=== PATIENT | male | born 1995 | race Hispanic/Latino ===

== ENCOUNTER 2018-12-12 12:38 | Emergency (ER) | payer OTHER ==
[2018-12-12] MEDS ORDERED: LIDOCAINE 1% MPF 5 ML VIAL ONE (12:58)
--- NOTE | 2018-12-12 13:09 | EDPHYS ---
Physician Documentation [facility] Name: Henry Perales Age: 23 yrs Sex: Male : 1995 Arrival Date: 12/12/2018 Time: 12:40 Bed 8 Private MD: ED Physician Devonte Ervin HPI: 12/12 12:47 This 23 yrs old Male presents to ER via Ambulatory with complaints of Laceration To kb Scalp/Face. 12:47 The patient has a laceration related to: playing sports, basketball, occurred outdoors, kb and there are no complicating factors. The injury was accidental. The laceration(s) is(are) located on the left supraorbital ridge. Onset: The symptoms/episode began/occurred just prior to arrival. Associated signs and symptoms: The patient has no apparent associated signs or symptoms. The patient has not experienced similar symptoms in the past. The patient has not recently seen a physician. Pt reports he was dunking the ball and hit head on basketball hoop causing laceration just above left eye. Denies visual changes. . Historical: - Allergies: 12:41 No Known Allergies; la1 - PMHx: 12:41 None; la1 - Immunization history:: Adult Immunizations up to date. - Social history:: Smoking status: Patient/guardian denies using tobacco. - Ebola Screening: : No symptoms or risks identified at this time. ROS: 12:44 Constitutional: Negative for fever, chills, and weight loss, Cardiovascular: Negative kb for chest pain, palpitations, and edema, Respiratory: Negative for shortness of breath, cough, wheezing, and pleuritic chest pain, Abdomen/GI: Negative for abdominal pain, nausea, vomiting, diarrhea, and constipation, MS/Extremity: Negative for injury and deformity, Neuro: Negative for headache, weakness, numbness, tingling, and seizure. 12:44 Skin: Positive for laceration(s), of the left supraorbital ridge. Exam: 12:44 Constitutional: This is a well developed, well nourished patient who is awake, alert, kb and in no acute distress. Head/Face: Normocephalic, atraumatic. Chest/axilla: Normal chest wall appearance and motion. Nontender with no deformity. No lesions are appreciated. Cardiovascular: Regular rate and rhythm with a normal S1 and S2. No gallops, murmurs, or rubs. Normal PMI, no JVD. No pulse deficits. Respiratory: Lungs have equal breath sounds bilaterally, clear to auscultation and percussion. No rales, rhonchi or wheezes noted. No increased work of breathing, no retractions or nasal flaring. Abdomen/GI: Soft, non-tender, with normal bowel sounds. No distension or tympany. No guarding or rebound. No evidence of tenderness throughout. MS/ Extremity: Pulses equal, no cyanosis. Neurovascular intact. Full, normal range of motion. Neuro: Awake and alert, GCS 15, oriented to person, place, time, and situation. Cranial nerves II-XII grossly intact. Motor strength 5/5 in all extremities. Sensory grossly intact. Cerebellar exam normal. Normal gait. 12:44 Skin: injury, laceration(s), the wound is approximately 3 cm(s), of the left supraorbital ridge, that can be described as clean, no foreign body, linear, without bleeding. Vital Signs: 12:41 BP 128 / 80; Pulse 95; Resp 16; Pulse Ox 98% on R/A; Weight 118.39 kg; Height 6 ft. 2 la1 in. (187.96 cm); 12:48 Temp 97.4(TE); Pain 5/10; la1 12:41 Body Mass Index 33.51 (118.39 kg, 187.96 cm) la1 Laceration: 13:07 Wound Repair of 3cm ( 1.2in ) subcutaneous laceration to left supraorbital ridge. kb Linear shaped.. Distal neuro/vascular/tendon intact. Anesthesia: Wound infiltrated with 2 mls of 1% lidocaine. Wound prep: Moderate cleansing with betadine by me, Wound irrigation with saline by ia. Skin closed with 6 5-0 fast absorbing gut using interrupted sutures and sterile technique. Patient tolerated well. MDM: 12:42 Patient medically screened. kb 12:47 Data reviewed: vital signs, nurses notes. Data interpreted: Pulse oximetry: on room air kb is 98 %. Interpretation: normal. 13:07 Counseling: I had a detailed discussion with the patient and/or guardian regarding: the kb historical points, exam findings, and any diagnostic results supporting the discharge/admit diagnosis, the need for outpatient follow up, a family practitioner, to return to the emergency department if symptoms worsen or persist or if there are any questions or concerns that arise at home. 12/12 12:42 Order name: Dressing - Wound; Complete Time: 13:13 kb 12/12 12:42 Order name: Gloves, Sterile; Complete Time: 12:48 kb 12/12 12:42 Order name: Setup Suture Tray; Complete Time: 12:48 kb 12/12 12:42 Order name: Vicryl, Sutures; Complete Time: 12:48 kb Administered Medications: 12:48 Drug: Lidocaine (1 %) 1 vials Volume: 5 ml; Route: Infiltration; la1 Disposition: 22:09 Co-signature as Attending Physician, Devonte rEvin MD Available for consultation at ps1 all times . Disposition: 12/12/18 13:08 Discharged to Home. Impression: Laceration without foreign body of left eyelid and periocular area. - Condition is Stable. - Discharge Instructions: Facial Laceration, [id number]. - Medication Reconciliation Form, Thank You Letter, Antibiotic Education, Prescription Opioid Use form. - Follow up: Emergency Department; When: As needed; Reason: Worsening of condition. Follow up: Private Physician; When: 2 - 3 days; Reason: Recheck today's complaints, Continuance of care, Re-evaluation by your physician. Signatures: Abby Crocker FNP-C [employer]-Jaspreet Gonzalez RN RN la1 Devonte Ervin MD MD ps1 Corrections: (The following items were deleted from the chart) 12:48 12:44 Skin: Positive for laceration(s), of the left upper eyelid, kb 12:48 12:44 Skin: injury, laceration(s), the wound is approximately 3 cm(s), of the left kb upper eyelid, that can be described as clean, no foreign body, linear, without bleeding, kb 13:14 13:08 12/12/2018 13:08 Discharged to Home. Impression: Laceration without foreign body la1 of left eyelid and periocular area. Condition is Stable. Forms are Medication Reconciliation Form, Thank You Letter, Antibiotic Education, Prescription Opioid Use. Follow up: Emergency Department; When: As needed; Reason: Worsening of condition. Follow up: Private Physician; When: 2 - 3 days; Reason: Recheck today's complaints, Continuance of care, Re-evaluation by your physician. kb
--- NOTE | 2018-12-12 13:09 | ER ---
Nurse's Notes [facility] Name: Henry Perales Age: 23 yrs Sex: Male : 1995 Arrival Date: 12/12/2018 Time: 12:40 Bed 8 Private MD: Diagnosis: Laceration without foreign body of left eyelid and periocular area Presentation: 12/12 12:40 Presenting complaint: Patient states: I was playing basketball and hit my left eye on la1 the rim, laceration noted to left eyelid. Transition of care: patient was not received from another setting of care. Complicating Factors: There are no complicating factors for this patient. Onset of symptoms was December 12, 2018. Risk Assessment: Do you want to hurt yourself or someone else? Patient reports no desire to harm self or others. Initial Sepsis Screen: Does the patient meet any 2 criteria? No. Patient's initial sepsis screen is negative. Does the patient have a suspected source of infection? No. Patient's initial sepsis screen is negative. Care prior to arrival: None. 12:40 Method Of Arrival: Ambulatory la1 12:40 Acuity: JULIANA 4 la1 Historical: - Allergies: 12:41 No Known Allergies; la1 - PMHx: 12:41 None; la1 - Immunization history:: Adult Immunizations up to date. - Social history:: Smoking status: Patient/guardian denies using tobacco. - Ebola Screening: : No symptoms or risks identified at this time. Screenin:43 Abuse screen: Denies threats or abuse. Nutritional screening: No deficits noted. la1 Tuberculosis screening: No symptoms or risk factors identified. Fall Risk None identified. Assessment: 12:42 General: Appears in no apparent distress. Behavior is calm, cooperative. Pain: la1 Complains of pain in left upper eyelid. Neuro: Level of Consciousness is awake, alert, obeys commands, Oriented to person, place, time, situation. Cardiovascular: Capillary refill < 3 seconds Patient's skin is warm and dry. Respiratory: Airway is patent Respiratory effort is even, unlabored, Respiratory pattern is regular, symmetrical. GI: No signs and/or symptoms were reported involving the gastrointestinal system. : No signs and/or symptoms were reported regarding the genitourinary system. Musculoskeletal: Circulation, motion, and sensation intact. Injury Description: Laceration sustained to left upper eyelid is jagged, 2.6 to 7.5 cm long, was sustained 1-2 hours ago. is bleeding a small amount. Vital Signs: 12:41 BP 128 / 80; Pulse 95; Resp 16; Pulse Ox 98% on R/A; Weight 118.39 kg; Height 6 ft. 2 la1 in. (187.96 cm); 12:48 Temp 97.4(TE); Pain 5/10; la1 12:41 Body Mass Index 33.51 (118.39 kg, 187.96 cm) la1 ED Course: 12:40 Patient arrived in ED. la1 12:41 Triage completed. la1 12:42 Abby Crocker FNP-C [facility]. kb 12:42 Devonte Ervin MD is Attending Physician. kb 12:42 Arm band placed on left wrist. la1 12:43 Call light in reach. Side rails up X 1. la1 13:13 Jaspreet Alvarado RN is Primary Nurse. la1 13:13 No provider procedures requiring assistance completed. Patient did not have IV access la1 during this emergency room visit. Administered Medications: 12:48 Drug: Lidocaine (1 %) 1 vials Volume: 5 ml; Route: Infiltration; la1 Outcome: 13:08 Discharge ordered by . kb 13:13 Discharged to Law Enforcement la1 13:13 Condition: stable 13:13 Discharge instructions given to patient, Instructed on discharge instructions, follow up and referral plans. wound care, Demonstrated understanding of instructions, follow-up care, wound care. 13:14 Patient left the ED. la1 Signatures: Abby Crocker FNP-C FNP-Jaspreet Gonzalez, RN RN la1
== END 2018-12-12 13:14 | disposition home or self-care (01) ==
LOC: ER 12:38
PROC: 0JQ10ZZ Repair Face Subcutaneous Tissue and Fascia, Open Approach (ICD-10-PCS; principal; 2018-12-12)
DX: S01.112A Laceration without foreign body of left eyelid and periocular area, initial encounter (principal); W21.89XA Striking against or struck by other sports equipment, initial encounter; Y93.67 Activity, basketball
CPT/HCPCS: 99283